=== PATIENT | male | born 1990 | race Caucasian/White ===

== ENCOUNTER 2018-01-17 06:46 | Emergency (ER) | payer OTHER ==
[2018-01-17 07:30] VITALS: BP 117/59; PULSE 61; RESP 18; TEMP 98.2; O2SAT 98
--- NOTE | 2018-01-17 09:57 | PD ---
HPI Chief Complaint: Psychiatric Symptoms Time Seen by Provider: 09:27 Travel History International Travel<30 days: No Contact w/Intl Traveler<30days: No Traveled to known affect area: No History of Present Illness HPI 27-year-old male presents emergency department as a Zhao act with [facility]'s office from [place] after an apparent blackout secondary to Ambien use that occurred last night. Patient says he "took more than he was supposed to" but says that he only took one pill. Patient has a history of anxiety and takes Paxil. Denies suicidal or homicidal ideations at this time. Denies history of intentional or other overdose. Denies illicit drug use. Denies alcohol use. He has no other complaints today. PFSH Past Medical History AAA: No ADD: No ADHD: No Alzheimer's Disease: No Anemia: No Arthritis: No Asthma: No Atrial Fibrillation: No Autoimmune Disease: No Blood Disorders: No Bipolar Disorder: No Anxiety: Yes Depression: No Heart Rhythm Problems: No Cancer: No Cardiac Catheterization: No Cardiomyopathy: No Cardiovascular Problems: No Cerebral Palsy: No High Cholesterol: No Chemotherapy: No Chest Pain: No Congestive Heart Failure: No Cirrhosis: No COPD: No Cerebrovascular Accident: No Coronary Artery Disease: No Cystic Fibrosis: No Dementia: No Developmental Delay: No Diabetes: No Patient Takes Glucophage: No Dialysis: No Diminished Hearing: No Diverticulitis: No Deep Vein Thrombosis: No Endocrine: No Fibromyalgia: No Gastrointestinal Disorders: No Genetic Disorder: No GERD: No Glaucoma: No Gout: No Genitourinary: No Headaches: No Hepatitis: No Hiatal Hernia: No Heparin Induced Thrombocytopen: No Herniated Disk: No Hypertension: No Immune Disorder: No Inguinal Hernia: No Implanted Vascular Access Dvce: No Insomnia: Yes Kidney Stones: No Medical other: No Musculoskeletal: No Neurologic: No Parkinson's Disease: No Psychiatric: Yes Reproductive: No Respiratory: No Resp. Syncytial Virus (RSV): No Integumentary: No Migraines: No Myocardial Infarction: No Pancreatitis: No Pneumonia: No Radiation Therapy: No Renal Failure: No Schizophrenia: No Seizures: No Shingles: No Sickle Cell Disease: No Sleep Apnea: No Thyroid Disease: No Triglycerides - High: No Ulcer: No Tetanus Vaccination: > 5 Years Influenza Vaccination: No ?: Not Past Surgical History Abdominal Aneurysm Repair: No Abdominal Surgery: No AICD: No Appendectomy: No Arteriovenous Shunt: No Cardiac Surgery: No Cholecystectomy: No Coronary Artery Bypass Graft: No Coronary Stent: No Ear Surgery: No Endocrine Surgery: No Eye Surgery: No Genitourinary Surgery: No Gynecologic Surgery: No Insulin Pump: No Joint Replacement: No Mastectomy: No Neurologic Surgery: No Oral Surgery: Yes (Root canal) Pacemaker: No Prostatectomy: No Thoracic Surgery: No Tonsillectomy: No Tympanostomy Tube: No Valve Replacement: No Other Surgery: No Family History Family Breast Cancer: No Family Myocardial Infarction: No Family Hypercholesterolemia: No Social History Alcohol Use: Yes Tobacco Use: No (I use vape) Substance Use: No Allergies-Medications (Allergen,Severity, Reaction): Coded Allergies: No Known Drug Allergies (Verified Allergy, Unknown, 01/17/18) Per pt. Review of Systems Except as stated in HPI: all other systems reviewed are Neg Physical Exam Narrative GENERAL: Well-developed well-nourished no apparent distress, appearing sleepy SKIN: Focused skin assessment warm/dry. HEAD: Left eye with an area of healing ecchymosis normocephalic. EYES: Pupils equal and round. No scleral icterus. No injection or drainage. EOMI ENT: No nasal bleeding or discharge. Mucous membranes pink and moist. NECK: Trachea midline. No JVD. No lymphadenopathy CARDIOVASCULAR: Regular rate and rhythm. No murmur appreciated. RESPIRATORY: No accessory muscle use. Clear to auscultation. Breath sounds equal bilaterally. MUSCULOSKELETAL: No obvious deformities. No clubbing. No cyanosis. No edema. NEUROLOGICAL: Awake and alert. No obvious cranial nerve deficits. Motor grossly within normal limits. Normal speech. PSYCHIATRIC: Appropriate mood and affect; insight and judgment normal. Data Data Last Documented VS Vital Signs Date Time Temp Pulse Resp B/P (MAP) Pulse Ox O2 Delivery O2 Flow Rate FiO2 01/17/18 11:36 01/17/18 07:30 98.2 61 18 98 Room Air Orders Orders Diet Regular Basic (01/17/18 Breakfast) Ed Discharge Order (01/17/18 10:59) MDM Medical Decision Making Medical Screen Exam Complete: Yes Emergency Medical Condition: Yes Differential Diagnosis Substance use, polysubstance use, overdose, depression, anxiety Narrative Course 27-year-old male presents emergency department as a Zhao act with [facility]'s office from [place] after an apparent blackout secondary to Ambien use that occurred last night. Patient says he "took more than he was supposed to" but says that he only took one pill. Patient has a history of anxiety and takes Paxil. Denies suicidal or homicidal ideations at this time. Denies history of intentional or other overdose. Denies illicit drug use. Denies alcohol use. He has no other complaints today. Vital signs are stable. Physical exam findings essentially unremarkable. Appears to be a left eye ecchymosis that is in the healing process. Patient is medically cleared to see psych. Psych evaluated this patient and cleared this patient for discharge. Condition: Stable Pratima Newton January 17, 2018 09:57
--- NOTE | 2018-01-17 10:08 | PD.PSY.CON ---
Provisional Diagnosis Admission Date Date of consultation 01/17/2018 [place]. 1. Adjustment disorder with disturbance of conduct 2. Anxiety disorder 3. Polysubstance abuse [place]. Deferred History of Present Illness Service Psychiatry Consult Requested By ED Reason for Consult Zhao Act Primary Care Physician Unknown HPI Mr. Paige is a 27-year-old male with a reported history of anxiety and depression who presents in transfer from [facility] under a Zhao act. Documentation from outside hospital reviewed. Patient presented there with ingestion of 30 Ambien tablets. He told the ED provider at outside hospital that he took these to get some sleep. Father apparently told the ED provider that he may have snorted some of the Ambien as well. Reviewing our electronic medical record, it appears this is patient's first visit to [facility]. Patient seen and examined. Chart reviewed. Case discussed with nursing staff. No evidence of behavioral disturbance, no suicidality or homicidality since the patient has been in our ED. On my examination today, the patient reports that presenting overdose was not suicidal in nature. He says that he had had a bad day yesterday and has been struggling with anxiety for several months. He says that he has found that the Ambien helps with anxiety and so he took a few. He does not remember overdosing on the quantity alleged in the ED provider's note from outside hospital. He denies any suicidal or homicidal ideation, intent or plan presently and contracts for safety. I can elicit no depressive or hypomanic/manic symptoms. He reports that he struggles with anxiety, chiefly psychological in nature although he occasionally has physical symptoms as well. He reports that this anxiety is with him throughout the day and waxes and wanes in intensity. There may be some degree of associated agoraphobia. He denies any audiovisual hallucinations. I can elicit no delusional material. The remainder of the psychiatric ROS is negative. The patient has no physical complaints. He is requesting discharge from the emergency room this morning. Past psychiatric history: The patient reports history of depression and anxiety. He is not under the care of a psychiatrist presently but is agreeable to outpatient mental health follow-up referral. He says that his primary care doctor has prescribed him Paxil and Ambien for help with his anxiety. He has taken the Paxil before but when he resumed at this time he had intolerable urinary retention, constipation and sexual side effects. He denies any history of psychiatric admissions or suicide attempts. Family history: The patient denies any family history of mental illness or suicide. Chemical dependency history: The patient admits to drinking alcohol and smoking cannabis daily. Denies any other substance use. Social history: The patient lives in [place] with his brother. He is single with no children. 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 He served in the [employer] and had a general discharge. No reported PTSD symptoms. Denies any legal history. Denies any access to guns or firearms. He is a [employer]. He denies any history of abuse or mistreatment. With the patient's permission, I have obtained collateral information from his brother Alvin at [phone]. Alvin reports that the patient has no previous history of suicide attempts. Alvin has no concerns about the patient being a risk of harm to self or others from mental illness if discharged today and is comfortable with picking him up this morning. Alvin does note that the patient has an extensive history of substance use disorder and in fact the family moved the patient down from [place] to monitor his substance use issues more closely. I have recommended that Alvin file the [place] act to get the patient help for his substance use issues. I have recommended that he secure the home of potential means of harm to self or others out of an abundance of caution, in particular securing any guns, knives and medications. I have educated Alvin regarding the mechanisms in place to have the patient brought back to the emergency room for further psychiatric evaluation should the need arise including Zhao act and ex parte. Review of Systems Except as stated in HPI: all other systems reviewed are Neg Past Family Social History Coded Allergies: No Known Drug Allergies (Verified Allergy, Unknown, 01/17/18) Per pt. Past Medical History Patient denies any past medical history Home medications are Paxil and Ambien Patient's Strengths (min. 2) Attending to basic needs. Verbally fluent. Physical Exam Physical exam completed by ED provider at outside hospital. On my examination today, the patient appears to be in no acute physical distress. No motor abnormalities noted. No signs of intoxication or withdrawal noted. Labs and vitals reviewed: Vital Signs Vital Signs Date Time Temp Pulse Resp B/P (MAP) Pulse Ox O2 Delivery O2 Flow Rate FiO2 01/17/18 08:08 (78) 01/17/18 07:30 98.2 61 18 98 Room Air Lab Results Laboratories from outside hospital reviewed: Urinalysis bland. Urine toxicology positive for cannabinoids. CBC unremarkable. CMP unremarkable. Tylenol and salicylate level undetectable. Alcohol level undetectable. Chest x -ray read as normal. Mental Status Examination Appearance: Appropriate Consciousness: Alert Orientation: x4 Motor Activity: Other (No motor abnormalities noted) Speech: Unremarkable Language: Adequate Fund of Knowledge: Adequate Attention and Concentration: Adequate Memory: Unremarkable (Grossly intact on clinical exam) Mood: Anxious Affect: Appropriate Thought Process & Associations: Intact Thought Content: Appropriate Hallucination Type: None Delusion Type: None Suicidal Ideation: No Suicidal Plan: No Suicidal Intention: No Homicidal Ideation: No Homicidal Plan: No Homicidal Intention: No Mental Status Exam Remarks Insight and judgment are perhaps fair Assessment & Plan Problem List: (1) Adjustment disorder with disturbance of conduct ICD Codes: F43.24 - Adjustment disorder with disturbance of conduct (2) Anxiety disorder ICD Codes: F41.9 - Anxiety disorder, unspecified (3) Polysubstance abuse ICD Codes: F19.10 - Other psychoactive substance abuse, uncomplicated Assessment & Plan 27-year-old male with psychiatric history as detailed above who presents in transfer from outside hospital under a Zhao act. On my examination today, the patient denies that presenting ingestion was suicidal in nature. He denies any suicidal or homicidal ideation presently. Although he has some anxiety, I can detect no severely unstable mental illness as defined under the Zhao act in this patient at this time. The patient appears to be attending to his basic needs. I have obtained reassuring collateral from the patient's brother, and this collateral additionally suggests that patient's psychiatric issues may be chiefly substance related and so would not fall under the Zhao act definition of mental illness. Synthesizing this information and based on the available evidence, I oil program compliance specialist that the patient does not presently meet the Zhao act criteria. I have lifted the Zhao act. I have offered the patient involuntary psychiatric hospitalization for management of his anxiety, but he has declined and is requesting discharge from the ER this morning. I have no basis to retain him over his objection. I have discussed with him that he might do well with a less anticholinergic SSRI for management of his anxiety. I have recommended outpatient psychiatric follow-up, and nurse will provide the appropriate referrals. I have counseled the patient to abstain from any substances of abuse. I have counseled the patient regarding warning signs for need to return to the psychiatric emergency room as part of a general safety plan. Patient is otherwise psychiatrically clear for discharge from the ED. Thank you very much for this consultation. Nikita Espana MD January 17, 2018 10:08
== END 2018-01-17 11:58 | disposition home or self-care (01) ==
LOC: NEPJ 06:46
DX: F43.24 Adjustment disorder with disturbance of conduct (principal); F41.9 Anxiety disorder, unspecified; F19.10 Other psychoactive substance abuse, uncomplicated; F32.9 Major depressive disorder, single episode, unspecified; G47.00 Insomnia, unspecified; F17.290 Nicotine dependence, other tobacco product, uncomplicated
CPT/HCPCS: 99284